=== PATIENT | female | born 1945 | race Caucasian/White ===

== ENCOUNTER 2022-09-11 18:42 | Emergency (ER) | payer MEDICARE, MEDICAID ==
[2022-09-11] MEDS ORDERED: Boostrix 0.5 ML (Tdap) VIAL (>/=7 yrs of age) ONE (20:33)
== END 2022-09-11 20:43 | disposition home or self-care (01) ==
LOC: CSHERS 18:42
DX: S06.0X0A Concussion without loss of consciousness, initial encounter (principal); E11.9 Type 2 diabetes mellitus without complications; W18.09XA Striking against other object with subsequent fall, initial encounter
CPT/HCPCS: 70450; 90471; 90715